=== PATIENT | female | born 1940 | race Caucasian/White ===

== ENCOUNTER 2019-01-09 13:15 | Day surgery (SDC) | payer OTHER ==
[2019-01-09] MEDS ORDERED: LIDOCAINE 2%HCL (LOCAL ANESTH.) INJ 20ML MDV ONE (14:38)
[2019-01-09] MEDS ORDERED: IOHEXOL 350 MG/ML 100ML IJ ONE (14:38)
[2019-01-09 14:52] LABS: INR 1.02 (0.9-1.15); Partial Thromboplastin Time 27.3 sec (23.64-32.05)
[2019-01-09] MEDS ORDERED: FAMOTIDINE (10MG/ML) 2ML VL IV ONE (15:00)
[2019-01-09] MEDS ORDERED: diphenhdrAMINE HCL 50 MG/1 ML VL ONE (15:02)
[2019-01-09] MEDS ORDERED: methylPREDNISolone SOD SUCC 125 MG/2 ML VL ONE (15:02)
[2019-01-09] MEDS ORDERED: fentaNYL CITRATE 100 MCG/2 ML VL ONE (15:02)
[2019-01-09] MEDS ORDERED: MIDAZOLAM HCL 1MG/1ML-2 ML VIAL ONE (15:02)
[2019-01-09] MEDS ORDERED: IODIXANOL 320MG/ML 100ML BTL IV ONE (16:00)
== END 2019-01-09 17:22 | disposition home or self-care (01) ==
LOC: CATH 13:15
PROVIDERS: ATTEND Radiology Diagnostic Radiology
DX: I82.403 Acute embolism and thrombosis of unspecified deep veins of lower extremity, bilateral (principal); E78.5 Hyperlipidemia, unspecified; I10 Essential (primary) hypertension; Z85.3 Personal history of malignant neoplasm of breast
CPT/HCPCS: 36415; 37191; 85610; 85730; C1769; C1880; C1894; J1200; J1644; J2930; J3490; Q9967; 33285; 76942; 99152; 99153; J2250